=== PATIENT | male | born 2000 | race Caucasian/White ===

== ENCOUNTER → 2021-03-10 | Outpatient (REF) | payer OTHER, MEDICAID ==
[2021-03-10 13:03] LABS: PERCENT SATURATION 18.2 % (19.7-50.0)
[2021-03-11 16:07] LABS: ENDOMYSIAL ABY IgA Negative (Negative); TISSUE TRANSGLUTAMINASE IgA <2 U/mL (0-3)
== END ==
LOC: M LAB REF 12:16
PROVIDERS: ATTEND Internal Medicine
DX: D64.9 Anemia, unspecified (principal)

== ENCOUNTER → 2022-06-08 | Outpatient (REF) | payer OTHER, MEDICAID | LOC: M LAB REF 16:22 | PROVIDERS: ATTEND Family Medicine | DX: E61.1 Iron deficiency (principal) ==